=== PATIENT | male | born 1970 | race American Indian/Alaskan Native ===

== ENCOUNTER 2016-04-29 22:01 | Emergency (ER) | payer MEDICAID ==
--- NOTE | 2016-04-29 22:46 | Emergency Department Report ---
Chief Complaint: Wound/Laceration Stated Complaint: SORE ON FOOT Time Seen by Provider: 04/29/16 22:29 - HPI History of Present Illness: Patient is 46-year-old diabetic male who presents to ED complaining of left toe ulcer times unknown days. Patient states today he noticed an ulcer on his second and the left toe. Patient states he noticed pus coming out of a bad foul odor. Patient denies loss of sensation on July. Patient admitted small tingling sensation in both illness of sensation. Patient states he takes his Humalog as prescribed. Patient denies fevers/ chills/nausea/vomiting/abdominal pain/chest pain/ shortness of breath or problems. - ROS Review of Systems: As noted in HPI - Exam Vital Signs: Vital Signs 04/29/16 22:07 Temperature 98.5 F Pulse Rate 92 H Respiratory 18 Rate Blood Pressure 183/113 O2 Sat by Pulse 100 Oximetry Physical Exam: GENERAL: Alert and oriented x3, no apparent distress, Normal Gait, atraumatic. HEAD: Head is normocephalic and a-traumatic. NECK: Supple. Non edematous, No carotid bruits. No lymphadenopathy or thyromegaly. LUNGS: Symetrical with respiration, No wheezing, no rales or crackles, CTAB. HEART: S1, S2 present, regular rate and rhythm without murmur, no rubs, no gallops. EXTREMITIES/MUSCULOSKELETAL: No cyanosis, clubbing, rash, lesions or edema. Left leg amputated. Right 2 toes ulcers present, pus drainage, foul odor. NEUROLOGIC: No focal Deficit, Cranial nerves II through XII are grossly intact. No loss of sensation, No facial droop, Negative rhomberg. SKIN: Warm and dry, No lesions, No ulceration or induration present. MSE screening note: Focused history and physical exam performed. Due to findings the following was ordered: ED Medical Decision Making - Medical Decision Making Labs ordered. X-ray of left foot ordered. Point of care blood glucose greater than 400. 454 to be exact. Patient waiting to be seen by ED physician. ED Disposition for MSE Condition: Stable
[2016-04-29 23:45] LABS: Alanine Aminotransferase 8 units/L (7-56); Albumin 3.5 g/dL (3.9-5); Albumin/Globulin Ratio 1.1 %; Alkaline Phosphatase 103 units/L (35-129); BUN/Creatinine Ratio 12.22; Bilirubin,Total 0.7 mg/dL (0.1-1.2); Blood Urea Nitrogen 11 mg/dL (9-20); Calcium 8.7 mg/dL (8.4-10.2); Carbon Dioxide 23 mmol/L (22-30); Chloride 94.5 mmol/L (98-107); Potassium 4.1 mmol/L (3.6-5.0); Sodium 133 mmol/L (137-145); Total Protein 6.8 g/dL (6.3-8.2)
[2016-04-29 23:46] LABS: Anion Gap 20 mmol/L
[2016-04-29 23:47] LABS: Glucose 532 mg/dL (75-100)
[2016-04-30 00:01] LABS: Basophils % (Auto) 0.6 % (0.0-1.8); Eosinophils % (Auto) 2.3 % (0.0-4.3); Hematocrit 39.6 % (35.5-45.6); Hemoglobin 13.5 gm/dl (11.8-15.2); Mean Corpuscular HGB Conc 34 % (32-34); Mean Corpuscular Hemoglobin 31 pg (28-32); Mean Corpuscular Volume 90 fl (84-94); Platelet Count 240 K/mm3 (140-440); Red Blood Count 4.38 M/mm3 (3.65-5.03); Red Cell Distribution Width 13.9 % (13.2-15.2); White Blood Count 7.4 K/mm3 (4.5-11.0)
[2016-04-30 01:32] LABS: Bilirubin,Urine NEG (Negative); Blood,Urine NEG (Negative); Ketones,Urine NEG (Negative); Leukocyte Esterase,Urine NEG (Negative); Nitrite,Urine NEG (Negative); Protein,Urine <15 mg/dL mg/dL (Negative); Urobilinogen,Urine < 2.0 mg/dL (<2.0)
[2016-04-30] MEDS ORDERED: NACL 0.9% 1000 ML 1,000 ML IV ONE ×2 (04:11→04:12)
[2016-04-30] MEDS ORDERED: VANCOMYCIN/NS 1 GM/250 ML 250 ML IV ONE (04:12)
[2016-04-30] MEDS ORDERED: BACTRIM DS PO ONE (06:35)
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
[2016-04-30] MEDS ORDERED: ZESTRIL PO ONE (06:38)
[2016-04-30] MEDS ORDERED: TRIPLE ANTIBIOTIC TP ONE (06:46)
[2016-04-30 08:41] VITALS: BP 163/99
--- NOTE | 2016-04-30 09:25 | XRay Report ---
LEFT FOOT, TWO VIEWS HISTORY: Pain, diabetic foot ulcer. FINDINGS: The soft tissues are unremarkable. No large ulceration is appreciated on two views. Bony structures and joint spaces are within normal limits. Minor degenerative changes are noted at the first metatarsophalangeal joint. No periostitis or bony destruction or fracture. IMPRESSION: Unremarkable left foot films.
== END 2016-04-30 08:45 | disposition home or self-care (01) ==
LOC: ED 22:01
DX: E10.621 Type 1 diabetes mellitus with foot ulcer (principal); E10.65 Type 1 diabetes mellitus with hyperglycemia; I10 Essential (primary) hypertension; F17.200 Nicotine dependence, unspecified, uncomplicated; Z88.8 Allergy status to other drugs, medicaments and biological substances
CPT/HCPCS: 36415; 73620; 80053; 81001; 82962; 85025; 96365; 96375; 99285; J3370; J7030; A6250; J1815

== ENCOUNTER 2016-05-01 16:35 | Emergency (ER) | payer MEDICAID ==
[2016-05-01 17:40] LABS: Basophils % (Auto) 0.5 % (0.0-1.8); Eosinophils % (Auto) 0.8 % (0.0-4.3); Hematocrit 43.8 % (35.5-45.6); Hemoglobin 14.7 gm/dl (11.8-15.2); Mean Corpuscular HGB Conc 34 % (32-34); Mean Corpuscular Hemoglobin 30 pg (28-32); Mean Corpuscular Volume 89 fl (84-94); Platelet Count 276 K/mm3 (140-440); Red Blood Count 4.92 M/mm3 (3.65-5.03); Red Cell Distribution Width 13.4 % (13.2-15.2); White Blood Count 9.3 K/mm3 (4.5-11.0)
[2016-05-01 17:58] LABS: Blood Urea Nitrogen 13 mg/dL (9-20); Calcium 9.7 mg/dL (8.4-10.2); Carbon Dioxide 24 mmol/L (22-30); Chloride 91.5 mmol/L (98-107); Potassium 3.6 mmol/L (3.6-5.0); Sodium 136 mmol/L (137-145)
[2016-05-01 18:03] LABS: Urine Drugs of Abuse Note Disclamer
[2016-05-01 18:04] LABS: Anion Gap 24 mmol/L; Glucose 602 mg/dL (75-100)
[2016-05-01] MEDS ORDERED: BACTRIM DS PO ONE (18:05)
[2016-05-01] MEDS ORDERED: ZOFRAN IV ONE (18:06)
[2016-05-01] MEDS ORDERED: REGLAN IV ONE (18:06)
[2016-05-01] MEDS ORDERED: NACL 0.9% 1000 ML 1,000 ML IV ONE ×3 (18:06→20:51)
[2016-05-01] MEDS ORDERED: CLEOCIN 600 MG/50 mL 50 ML IV ONE (18:07)
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
[2016-05-01 18:33] LABS: Bilirubin,Urine NEG (Negative); Blood,Urine SM (Negative); Ketones,Urine TR mg/dL (Negative); Leukocyte Esterase,Urine NEG (Negative); Nitrite,Urine NEG (Negative); Urobilinogen,Urine < 2.0 mg/dL (<2.0)
[2016-05-01] MEDS ORDERED: BACTRIM DS PO SCH (22:00)
[2016-05-02] MEDS ORDERED: TYLENOL PO PRN (00:41)
[2016-05-02] MEDS ORDERED: MILK OF MAGNESIA PO PRN (00:41)
[2016-05-02] MEDS ORDERED: INSULIN LISPRO 20 UNIT SUB-Q SCH (08:00)
[2016-05-02] MEDS ORDERED: NON-FORMULARY (Gabapentin [Gralise] 300 MG) PO SCH (08:00)
[2016-05-02] MEDS: NOVOLOG SUB-Q SCH ×3 (08:05→16:40)
[2016-05-02] MEDS ORDERED: NON-FORMULARY (Quetiapine Fumarate [Seroquel Xr] 400 MG) PO SCH (10:00)
[2016-05-02] MEDS ORDERED: TRIPLE ANTIBIOTIC TP SCH (10:00)
[2016-05-02] MEDS: ZESTRIL PO SCH (11:00)
[2016-05-02] MEDS ORDERED: NEURONTIN ONE (11:02)
[2016-05-02] MEDS ORDERED: GLUCOPHAGE ONE (11:03)
[2016-05-02] MEDS: ABILIFY PO SCH (11:10)
[2016-05-02] MEDS: GLUCOPHAGE XR PO SCH (11:10)
[2016-05-02] MEDS: CLEOCIN PO SCH ×3 (11:30→22:53)
--- NOTE | 2016-05-02 22:46 | Emergency Department Report ---
Blank Doc - Documentation Documentation: Patient remains calm and cooperative in the ED. Several meds were not given this afternoon secondary to meditec downtime. I have restarted Seroquel and gabapentin since patient's home urgent of the medication or not available patient awaiting acceptance
[2016-05-02] MEDS: TRIPLE ANTIBIOTIC TP SCH (22:52)
[2016-05-02] MEDS: LEVEMIR SUB-Q SCH (22:53)
[2016-05-03] MEDS: CLEOCIN PO SCH ×4 (00:47→18:49)
[2016-05-03] MEDS: NEURONTIN PO SCH ×3 (06:09→22:00)
[2016-05-03] MEDS: NOVOLOG SUB-Q SCH ×3 (08:10→16:44)
[2016-05-03] MEDS: GLUCOPHAGE XR PO SCH (10:56)
[2016-05-03] MEDS: TRIPLE ANTIBIOTIC TP SCH (10:58)
[2016-05-03] MEDS: ZESTRIL PO SCH (10:59)
[2016-05-03] MEDS: ABILIFY PO SCH (12:28)
[2016-05-03] MEDS: LEVEMIR SUB-Q SCH (22:00)
[2016-05-04] MEDS: CLEOCIN PO SCH ×4 (06:00→18:30)
[2016-05-04] MEDS: NOVOLOG SUB-Q SCH ×4 (07:43→19:00)
[2016-05-04] MEDS: NEURONTIN PO SCH ×3 (07:43→22:16)
[2016-05-04] MEDS: ABILIFY PO SCH (10:25)
[2016-05-04] MEDS: GLUCOPHAGE XR PO SCH (10:25)
[2016-05-04] MEDS: TRIPLE ANTIBIOTIC TP SCH (10:26)
[2016-05-04] MEDS: ZESTRIL PO SCH (10:26)
[2016-05-04] MEDS: ALUM-MAG HYDROX-SIMETH 200-200-20MG/5ML PO PRN ×2 (14:27→21:53)
--- NOTE | 2016-05-04 20:22 | Emergency Department Report ---
Blank Doc - Documentation Documentation: Vital signs labs reviewed. No supplemental issues.
[2016-05-04] MEDS: LEVEMIR SUB-Q SCH (22:46)
[2016-05-05] MEDS: CLEOCIN PO SCH ×3 (00:28→18:45)
[2016-05-05] MEDS: NEURONTIN PO SCH ×3 (07:08→22:00)
[2016-05-05] MEDS: NOVOLOG SUB-Q SCH ×2 (07:50→11:37)
[2016-05-05] MEDS: GLUCOPHAGE XR PO SCH (10:50)
[2016-05-05] MEDS: ABILIFY PO SCH (10:50)
[2016-05-05] MEDS: ZESTRIL PO SCH (10:51)
--- NOTE | 2016-05-06 02:09 | Event Note ---
Date: 05/06/16 No recent events. Awaiting psychiatric placement. Vital signs reviewed. Vital Signs 05/01/16 05/01/16 05/01/16 16:56 18:17 20:57 Temperature 99.1 F Pulse Rate 114 H 95 H Respiratory 18 20 21 Rate Blood Pressure 135/83 122/75 Blood Pressure [Left] O2 Sat by Pulse 97 99 93 Oximetry 05/01/16 05/01/16 05/01/16 21:00 22:00 22:57 Temperature 98.7 F Pulse Rate 103 H 90 Respiratory 25 H 21 22 Rate Blood Pressure 122/75 121/74 Blood Pressure 116/66 [Left] O2 Sat by Pulse 94 92 Oximetry 05/02/16 05/02/16 05/02/16 00:00 02:00 03:52 Temperature 98.7 F 97.8 F 98.6 F Pulse Rate 89 89 67 Respiratory 18 18 18 Rate Blood Pressure Blood Pressure 120/64 120/70 119/66 [Left] O2 Sat by Pulse 96 97 97 Oximetry 05/02/16 05/02/16 05/02/16 13:14 17:18 19:10 Temperature 98.6 F Pulse Rate 92 H Respiratory 14 16 20 Rate Blood Pressure Blood Pressure 140/85 [Left] O2 Sat by Pulse 95 100 Oximetry 05/03/16 05/03/16 05/03/16 10:35 14:00 19:35 Temperature 98.6 F 98 F Pulse Rate 91 H 88 Respiratory 20 20 18 Rate Blood Pressure Blood Pressure 138/78 142/78 [Left] O2 Sat by Pulse 97 97 100 Oximetry 05/03/16 05/04/16 05/04/16 21:00 07:55 10:26 Temperature 97.7 F Pulse Rate 74 105 H Respiratory 16 16 Rate Blood Pressure Blood Pressure 118/59 116/90 [Left] O2 Sat by Pulse 99 99 Oximetry 05/04/16 05/04/16 05/05/16 18:15 22:00 10:00 Temperature 98.3 F Pulse Rate 98 H Respiratory 16 18 18 Rate Blood Pressure Blood Pressure 142/95 [Left] O2 Sat by Pulse 97 98 98 Oximetry 05/05/16 10:51 Temperature Pulse Rate 98 H Respiratory Rate Blood Pressure 139/92 Blood Pressure [Left] O2 Sat by Pulse Oximetry
[2016-05-06] MEDS: CLEOCIN PO SCH ×3 (06:00→15:30)
--- NOTE | 2016-05-06 14:13 | Emergency Department Report ---
Blank Doc - Documentation Documentation: Accu-Cheks were reviewed and vital signs reviewed. Patient on a sliding scale. Will ask nurse if the patient has had their insulin.
[2016-05-06] MEDS: ABILIFY PO SCH (15:30)
[2016-05-06] MEDS: GLUCOPHAGE XR PO SCH (15:30)
[2016-05-06] MEDS: NEURONTIN PO SCH ×2 (15:30→22:56)
[2016-05-06] MEDS: ZESTRIL PO SCH (15:39)
[2016-05-06] MEDS: TRIPLE ANTIBIOTIC TP SCH (17:38)
[2016-05-07] MEDS: CLEOCIN PO SCH ×5 (06:35→19:41)
[2016-05-07] MEDS: NEURONTIN PO SCH ×4 (07:20→22:42)
[2016-05-07] MEDS: TRIPLE ANTIBIOTIC TP SCH (09:31)
[2016-05-07] MEDS: ZESTRIL PO SCH (09:32)
[2016-05-07] MEDS: GLUCOPHAGE XR PO SCH (09:32)
[2016-05-07] MEDS: ABILIFY PO SCH (09:32)
--- NOTE | 2016-05-08 01:57 | Event Note ---
Date: 05/08/16 Vital signs are reviewed. No recent events. Awaiting psychiatric placement Vital Signs 05/01/16 05/01/16 05/01/16 16:56 18:17 20:57 Temperature 99.1 F Pulse Rate 114 H 95 H Respiratory 18 20 21 Rate Blood Pressure 135/83 122/75 Blood Pressure [Left] O2 Sat by Pulse 97 99 93 Oximetry 05/01/16 05/01/16 05/01/16 21:00 22:00 22:57 Temperature 98.7 F Pulse Rate 103 H 90 Respiratory 25 H 21 22 Rate Blood Pressure 122/75 121/74 Blood Pressure 116/66 [Left] O2 Sat by Pulse 94 92 Oximetry 05/02/16 05/02/16 05/02/16 00:00 02:00 03:52 Temperature 98.7 F 97.8 F 98.6 F Pulse Rate 89 89 67 Respiratory 18 18 18 Rate Blood Pressure Blood Pressure 120/64 120/70 119/66 [Left] O2 Sat by Pulse 96 97 97 Oximetry 05/02/16 05/02/16 05/02/16 13:14 17:18 19:10 Temperature 98.6 F Pulse Rate 92 H Respiratory 14 16 20 Rate Blood Pressure Blood Pressure 140/85 [Left] O2 Sat by Pulse 95 100 Oximetry 05/03/16 05/03/16 05/03/16 10:35 14:00 19:35 Temperature 98.6 F 98 F Pulse Rate 91 H 88 Respiratory 20 20 18 Rate Blood Pressure Blood Pressure 138/78 142/78 [Left] O2 Sat by Pulse 97 97 100 Oximetry 05/03/16 05/04/16 05/04/16 21:00 07:55 10:26 Temperature 97.7 F Pulse Rate 74 105 H Respiratory 16 16 Rate Blood Pressure Blood Pressure 118/59 116/90 [Left] O2 Sat by Pulse 99 99 Oximetry 05/04/16 05/04/16 05/05/16 18:15 22:00 10:00 Temperature 98.3 F Pulse Rate 98 H Respiratory 16 18 18 Rate Blood Pressure Blood Pressure 142/95 [Left] O2 Sat by Pulse 97 98 98 Oximetry 05/05/16 05/05/16 05/06/16 10:51 19:00 09:11 Temperature 98 F 98.0 F Pulse Rate 98 H 88 88 Respiratory 16 20 Rate Blood Pressure 139/92 Blood Pressure 122/72 120/83 [Left] O2 Sat by Pulse 100 96 Oximetry 05/06/16 05/06/16 05/07/16 15:39 19:00 08:23 Temperature 98.7 F 98 F Pulse Rate 89 76 111 H Respiratory 17 16 Rate Blood Pressure 152/91 Blood Pressure 145/78 121/89 [Left] O2 Sat by Pulse 99 98 Oximetry 05/07/16 08:24 Temperature Pulse Rate Respiratory 16 Rate Blood Pressure Blood Pressure [Left] O2 Sat by Pulse 98 Oximetry
[2016-05-08] MEDS: NEURONTIN PO SCH ×2 (07:00→14:25)
[2016-05-08] MEDS: CLEOCIN PO SCH ×3 (07:12→12:38)
[2016-05-08] MEDS: TRIPLE ANTIBIOTIC TP SCH (12:38)
[2016-05-08] MEDS: ZESTRIL PO SCH (12:48)
[2016-05-08] MEDS: GLUCOPHAGE XR PO SCH (12:48)
[2016-05-08] MEDS: ABILIFY PO SCH (12:48)
--- NOTE | 2016-05-08 19:20 | Emergency Department Report ---
Blank Doc - Documentation Documentation: I have been advised by the mental health counselor that this patient does not meet 1013 criteria and that is 1013 has . I spoke to the patient. He is not depressed. He is calm. He is not suicidal. He states he understands that substance abuse is not in his interest and would jeopardize his well-being. This patient is in no distress. His exam is unremarkable except for his previous DKA. Assessment Substance abuse Amply controlled diabetes insulin-dependent Plan Patient's 1013 has . I do not find any indications to renew it. He is discharged to follow up with [facility].
[2016-05-08 20:26] VITALS: BP 133/66
== END 2016-05-08 20:25 ==
LOC: EEVIPCON 16:35 → ED 16:35
DX: R45.851 Suicidal ideations (principal); E10.621 Type 1 diabetes mellitus with foot ulcer; F14.10 Cocaine abuse, uncomplicated; F12.10 Cannabis abuse, uncomplicated; I10 Essential (primary) hypertension; F17.200 Nicotine dependence, unspecified, uncomplicated
CPT/HCPCS: 36415; 80048; 80307; 81001; 82010; 82550; 82805; 82962; 85025; 96361; 96365; 96372; 96375; 96376; 99285; G0480; J2405; J7030; 80320; A6250; J1815; J1818

== ENCOUNTER 2016-07-23 10:22 | Emergency (ER) | payer MEDICAID ==
[2016-07-23 11:51] LABS: Basophils % (Auto) 0.3 % (0.0-1.8); Eosinophils % (Auto) 1.6 % (0.0-4.3); Hematocrit 45.3 % (35.5-45.6); Hemoglobin 15.3 gm/dl (11.8-15.2); Mean Corpuscular HGB Conc 34 % (32-34); Mean Corpuscular Hemoglobin 30 pg (28-32); Mean Corpuscular Volume 88 fl (84-94); Platelet Count 316 K/mm3 (140-440); Red Blood Count 5.14 M/mm3 (3.65-5.03); White Blood Count 8.9 K/mm3 (4.5-11.0)
[2016-07-23 12:07] LABS: Anion Gap 18 mmol/L; BUN/Creatinine Ratio 16.25; Blood Urea Nitrogen 13 mg/dL (9-20); Calcium 9.6 mg/dL (8.4-10.2); Carbon Dioxide 23 mmol/L (22-30); Chloride 97.3 mmol/L (98-107); Glucose 313 mg/dL (75-100); Potassium 4.6 mmol/L (3.6-5.0); Sodium 134 mmol/L (137-145)
[2016-07-23 12:29] LABS: Bilirubin,Urine NEG (Negative); Blood,Urine SM (Negative); Ketones,Urine NEG (Negative); Leukocyte Esterase,Urine NEG (Negative); Mucus,Urine FEW /HPF; Nitrite,Urine NEG (Negative); Urobilinogen,Urine < 2.0 mg/dL (<2.0)
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
[2016-07-23] MEDS ORDERED: NACL 0.9% 1000 ML 1,000 ML IV ONE (13:52)
[2016-07-23 16:57] VITALS: BP 110/80
[2016-07-27 23:33] LABS: B-Hydroxybutyrate 0.1 mmol/L (0.2 - 0.28)
== END 2016-07-23 16:57 | disposition home or self-care (01) ==
LOC: ED 10:22
DX: Z76.0 Encounter for issue of repeat prescription (principal); E10.9 Type 1 diabetes mellitus without complications; I10 Essential (primary) hypertension; F17.200 Nicotine dependence, unspecified, uncomplicated; G62.9 Polyneuropathy, unspecified
CPT/HCPCS: 36415; 80048; 81001; 82010; 82805; 82962; 85025; 96360; 96372; 99283; J7030; J1815

== ENCOUNTER 2021-07-24 20:55 | Emergency (ER) | payer MEDICAID ==
[2021-07-25] MEDS ORDERED: HYDROcodone/ACETAMINOPHEN 5-325 MG TAB PO ONE (09:13)
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
[2021-07-25 10:07] LABS: Calcium 8.8 mg/dL (8.4-10.2)
[2021-07-25 10:19] LABS: Hematocrit 26.9 % (35.5-45.6); Hemoglobin 8.6 gm/dl (11.8-15.2); Mean Corpuscular HGB Conc 32 % (32-34); Mean Corpuscular Volume 92 fl (84-94); Platelet Count 266 K/mm3 (140-440); Red Blood Count 2.92 M/mm3 (3.65-5.03); Red Cell Distribution Width 15.8 % (13.2-15.2)
[2021-07-26 14:59] LABS: Calcium 7.8 mg/dL (8.4-10.2)
[2021-07-27 10:44] VITALS: BP 157/66
== END 2021-07-27 15:21 | disposition home or self-care (01) ==
LOC: ED 20:55
DX: I12.0 Hypertensive chronic kidney disease with stage 5 chronic kidney disease or end stage renal disease (principal); E10.22 Type 1 diabetes mellitus with diabetic chronic kidney disease; N18.6 End stage renal disease; M79.18 Myalgia, other site; F17.200 Nicotine dependence, unspecified, uncomplicated; E10.42 Type 1 diabetes mellitus with diabetic polyneuropathy; Z88.8 Allergy status to other drugs, medicaments and biological substances; Z99.2 Dependence on renal dialysis; Z88.5 Allergy status to narcotic agent; Z79.899 Other long term (current) drug therapy; Z79.4 Long term (current) use of insulin; Z59.00 Homelessness unspecified
CPT/HCPCS: 36415; 80048; 85025; 99284